=== PATIENT | male | born 1985 | race Caucasian/White ===

== ENCOUNTER 2022-12-07 11:32 | Day surgery (SDC) | payer BC ==
[2022-12-03 11:24] VITALS: BMI 26.6
[2022-12-07 13:40] VITALS: TEMP 98
[2022-12-07 14:02] VITALS: RESP 18
[2022-12-07 14:08] VITALS: BP 119/70; PULSE 75
== END 2022-12-07 14:07 | disposition home or self-care (01) ==
LOC: FASU-ENDO 11:32
PROVIDERS: ATTEND Internal Medicine Gastroenterology
PROC: 0DJD8ZZ Inspection of Lower Intestinal Tract, Via Natural or Artificial Opening Endoscopic (ICD-10-PCS; principal; 2022-12-07 13:13)
DX: Z12.11 Encounter for screening for malignant neoplasm of colon (principal); Z80.0 Family history of malignant neoplasm of digestive organs